=== PATIENT | female | born 1970 | race Caucasian/White ===

== ENCOUNTER 2016-12-20 10:46 | Emergency (ER) | payer BC ==
[~2016-12-20] VITALS: Ht 157.5 cm; Wt 75.1 kg
[~2016-12-20 10:46] MED LIST: BACTRIM,SEPT1 TABLET PO; KEFLEX500 MG PO; NIZORAL200 MG PO; TOPROL XL100 MG PO; ULTRAM50 MG PO
[2016-12-20 11:38] LABS: HEMATOCRIT 41.5 % (36.0-46.0); MCH 29.9 PG (29.0-34.0); MCV 87.9 FL (83-99); MEAN PLAT.VOLUME 11.6 uM^3 (9.5-12.4); PLATELET COUNT 190 K/uL (156-360); RBC DIS.WIDTH-CV 12.2 % (11.8-14.6); RBC DIS.WIDTH-SD 38.8 % (39-53); RED BLOOD COUNT 4.72 M/uL (3.80-5.20); WHITE BLOOD COUNT 13.5 K/uL (4.1-10.2)
[2016-12-20 11:49] LABS: CHLORIDE 105 mEq/L (99-109); POTASSIUM 4.4 mEq/L (3.7-5.4); SODIUM 141 mEq/L (136-147)
[2016-12-20 11:50] LABS: GLUCOSE 108 mg/dL (70-99)
[2016-12-20 11:52] LABS: ANION GAP 12 MEQ/L (2-14)
[2016-12-20 11:52] LABS: ADD MIUA? YES; BILIRUBIN NEGATIVE; BLOOD SMALL; COLOR YELLOW ((YELLOW)); GLUCOSE (STRIP) NEGATIVE; KETONES NEGATIVE; LEUKOCYTES TRACE; NITRITE NEGATIVE; PH, URINE 6.5 (5-8); PROTEIN (STRIP) NEGATIVE; UROBILINOGEN 0.2 MG/DL (0.2-1.0)
[2016-12-20 11:54] LABS: GFR ESTIMATE (CALCULATED) 56 mL/min/
[2016-12-20 11:55] LABS: UREA NITROGEN (BUN) 19 mg/dL (9-23)
[2016-12-20 12:07] LABS: QUANTITATIVE HCG 6.4 MIU/ML
[2016-12-20 12:59] LABS: EPITHELIAL CELLS 1+ /HPF; MUCUS NONE SEEN /LPF; WHITE BLOOD CELLS RARE /HPF (0-5)
[2016-12-20 13:00] LABS: BACTERIA RARE /HPF; CASTS NONE SEEN /LPF; CRYSTALS NONE SEEN; UCUL ADDED? NO
[2016-12-20] MEDS ORDERED: ZOFRAN ODT8 MG PO (16:19)
[2016-12-20] MEDS ORDERED: FLOMAX0.4 MG PO (16:19)
[2016-12-20] MEDS ORDERED: NORCO 5/3251 TABLET PO (16:19)
[2016-12-20 16:27] VITALS: BP 136/88
== END 2016-12-20 16:31 | disposition home or self-care (01) ==
LOC: EME 10:46
DX: N20.0 Calculus of kidney (principal); N23 Unspecified renal colic; I10 Essential (primary) hypertension; Z87.442 Personal history of urinary calculi; F17.200 Nicotine dependence, unspecified, uncomplicated
CPT/HCPCS: 74176; 80048; 81003; 84702; 85027; 99281; 99285